=== PATIENT | female | born 1985 | race Hispanic/Latino ===

== ENCOUNTER → 2019-05-07 | Day surgery (SDC) | payer OTHER ==
[~2019-05-07] MED LIST: CALCIUM 500+D1 EACH PO; DICYCLOMINE HCL20 MG PO; FENTANYL CITRATE/PF 100MCG/2 ML INJ ONE; MAGNESIUM250 M1 PO; MIDAZOLAM HCL 2 MG/2 ML VIAL ONE; PROPOFOL IV EMULSION 10 MG/ML 50 ML VIAL ONE; VITAMIN A10000 UNIT PO; VITAMIN B-121000 MC2 PO; VITAMIN B2 PO; VITAMIN C500 MG; VITAMIN D3400 UNI1 PO
--- OUTSIDE RECORDS SUMMARY | 2019-05-07 10:31 | XMS REPORT | Clinical Summary ---
Author Author [facility] Organization [facility] Address Unknown Phone Unavailable Care Team Providers Care Media Relations Intern Name Role Phone Ruiz Meza MD PCP Allergies Comments Active Allergy Reactions Severity Noted Date Bloody stool Sulfamethoxazole-Trimetho 01/13/2019 prim Cefaclor 09/11/2018 Folic Acid Rash Low 01/13/2019 Levetiracetam 09/11/2018 Medications End Date Status Medication Sig Dispensed Refills Start Date Active AFLURIA QUAD 8926-6690, TO BE 0 PF, 60 mcg/0.5 mL syringe ADMINISTERED 8 BY PHARMACIST FOR IMMUNIZATION Active vitamin A 8000 UNIT Take 8,000 0 capsule Units by mouth daily. Active cyanocobalamin (VITAMIN Take 3,000 0 B-12) 1000 MCG tablet mcg by mouth daily. Active magnesium gluconate Take 500 mg 0 (MAGONATE) 500 mg tablet by mouth tablet daily. Active VITAMIN D2 50,000 unit Take 50,000 3 capsule Units by 9 mouth once a week. Active calcium carbonate Take by 0 (CALCIUM 500 ORAL) mouth. 01/13/2019 Discontinued cholecalciferol, vitamin Take 1 tablet 0 D3, (VITAMIN D3) 5,000 by mouth unit tablet daily. Active Problems Not on file Encounters Care Team Description Date Type Specialty Armand Cavanaugh MD Partial symptomatic epilepsy with complex partial seizures, intractable, with status epilepticus (HCC) 02/10/2019 Hospital Neurology Encounter Armand Cavanaugh MD Partial symptomatic epilepsy with complex partial seizures, intractable, with status epilepticus (HCC) (Primary Dx) 01/13/2019 Office Visit Neurology Armand Cavanaugh MD Partial symptomatic epilepsy with complex partial seizures, intractable, with status epilepticus (HCC) 09/30/2018 Hospital Neurology Encounter Bassam Tubbs RN Partial symptomatic epilepsy with complex partial seizures, intractable, with status epilepticus (HCC) (Primary Dx) 09/25/2018 Orders Only Neurology Armand Cavanaugh MD Partial symptomatic epilepsy with complex partial seizures, intractable, with status epilepticus (HCC) (Primary Dx) 09/11/2018 Office Visit Neurology after 05/06/2018 Family History Medical History Relation Name Comments No Known Problems Father Diabetes Mother Hypertension Mother Relation Name Status Comments Father Alive Mother Alive Social History Date Tobacco Use Types Packs/Day Years Used Never Smoker Smokeless Tobacco: Never Used Alcohol Use Drinks/Week oz/Week Comments No Alcohol Habits Answer Date Recorded How often do you have a drink containing alcohol? Never 09/11/2018 How many drinks containing alcohol do you have on Not asked a typical day when you are drinking? How often do you have six or more drinks on one Not asked occasion? Sex Assigned at Date Recorded Not on file Industry Job Start Date Occupation Not on file Not on file Not on file Travel End Travel History Travel Start No recent travel history available. Last Filed Vital Signs Time Taken Vital Sign Reading 01/13/2019 10:04 AM CDT Blood Pressure 120/81 01/13/2019 10:04 AM CDT Pulse 81 - Temperature - - Respiratory Rate - - Oxygen Saturation - - Inhaled Oxygen - Concentration 01/13/2019 10:04 AM CDT Weight 108 kg (239 lb) 01/13/2019 10:04 AM CDT Height 144.8 cm (4' 9") 01/13/2019 10:04 AM CDT Body Mass Index 51.72 Plan of Treatment Care Team Description Date Type Specialty Armand Cavanaugh MD [address] [facility] [address] [place] [address] 05/15/2019 Office Visit Neurology Health Maintenance Due Date Last Done Comments INFLUENZA VACCINE 05/15/2019 Procedures Comments Procedure Name Priority Date/Time Associated Diagnosis EEG AMBULATORY 12 TO 24 Routine 02/13/2019 Partial symptomatic HRS 9:49 AM CDT epilepsy with complex partial seizures, intractable, with status epilepticus (HCC) EEG EXTENDED 41 - 60 MINS Routine 09/30/2018 Partial symptomatic 2:03 PM [employer]ING [employer] epilepsy with complex partial seizures, intractable, with status epilepticus (HCC) after 05/06/2018 Results * Ambulatory EEG (Take Home) (02/13/2019 9:49 AM CDT) Narrative Performed At AMBULATORY EEG REPORT Patient Name: Holley Harris Date of : 1985 Gender: female Duration: 72 Hours Start Date: 02/10/19 Start Time: 11:17 am End Date: 02/13/19 End Time: 9:17 am Indication Seizures Findings Technique: This study was performed utilizing a ambulatory EEG recorder. A modified international 10/20 system of EEG electrode placement was used. The patient was provided a button to click during what they considered to be events. Visual Analysis of Ambulatory EEG Monitoring:The EEG was visually inspected and analyzed for characterization of the background activity in all awake and sleep states, abnormal focal and generalized features, and intraictal and ictal epileptiform activity. Electrical seizure activity was correlated with the patients study log and recorded clicks. Computer Analysis of EEG Waveforms:The EEG under went computerized digital analysis which consisted of automated detection of electrical events that could be considered epileptiform. All electrographic events identified by the detection program were visually inspected in order to assess the waveform characteristics and significance of these electrographic events. All intraictal and ictal epileptiform events are described further below with additional details of the visual analysis. Events detected by computer analysis that were not determined by visual analysis to be epileptiform were considered to be myogenic, biologic, mechanical, or electrical artifact in origin. Only computer detected events that were verified by visual inspection to be interictal or ictal epileptiform discharges are reported below and considered in the final report of this monitoring study. Awake Recording: The occipital dominant rhythm is 10 Hz. 18-22 Hz activity is present in all regions. Sleep Recording:No epileptiform activity was recorded. Hyperventilation: No abnormality elicited. Photic Stimulation: No abnormality elicited. Seizures: Several push button events were recorded but no EEG changes were present. The patient did not report any seizures in the event log. Impression The background activity is within the range of normal variation. No lateralized or epileptiform activity was recorded. 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 18-22 Hz activity is present in all regions. Sleep Recording:No epileptiform activity was recorded. Hyperventilation: No abnormality elicited. Photic Stimulation: No abnormality elicited. Impression The background activity is within the range of normal variation. No lateralized or epileptiform activity was recorded. ICD-10 Code: R569 after 05/06/2018 Insurance Type Payer Benefit Subscriber ID Effective Phone Address Plan / Dates Group PPO AETNA AETNA PPO xxxxxxxxxx [id number] OPEN resent CHOICE Advance Directives Patient has advance care planning documents on file. For more information, lenka ramos contact: Nishant Brock [address] [place] [address]
--- OUTSIDE RECORDS SUMMARY | 2019-05-07 10:32 | XMS REPORT | Summary of Care ---
Author Author [facility] Organization [facility] Address Unknown Phone Unavailable Encounter LUCIA Lam(JEANINE) [id number] Date(s): 08/19/16 - 08/19/16 [facility] [address] [place] [address]- Discharge Diagnosis: Sciatica Discharge Diagnosis: Back pain Discharge Disposition: Home or Self Care Attending Physician: Keeley Pino DO Vital Signs 1 2 3 Most recent to oldest [Reference Range]: 152.4 cm (08/19/16 3:16 AM) Height 97.9 DegF (08/19/16 5:45 AM) 98 DegF (08/19/16 3:45 AM) 98.0 DegF (08/19/16 3:16 AM) Temperature Oral [96.4-99.1 DegF] 112/85 mmHg (08/19/16 5:45 AM) 100/70 mmHg (08/19/16 4:45 AM) 98/67 mmHg (08/19/16 3:45 AM) Blood Pressure [90-140/60-90 mmHg] 19 BRMIN (08/19/16 5:45 AM) 18 BRMIN (08/19/16 4:45 AM) 18 BRMIN (08/19/16 3:45 AM) Respiratory Rate [14-20 BRMIN] 74 bpm (08/19/16 5:45 AM) 72 bpm (08/19/16 4:45 AM) 71 bpm (08/19/16 3:45 AM) Peripheral Pulse Rate [60-100 bpm] 89.091 kg (08/19/16 3:16 AM) Weight 38.36 m2 (08/19/16 3:16 AM) Body Mass Index Problem List Condition Effective Dates Status Health Status Informant Asthma(Confirmed) Resolved Allergies, Adverse Reactions, Alerts Substance Reaction Severity Status Ceclor Active penicillins Active Medications acetaminophen-hydrocodone 325 mg-10 mg oral tablet 1 tab, Route: PO, Dosing Weight 89.091, kg, ONCE, STAT, Start date: 08/19/16 3:3 8:00 CDT, Stop date: 08/19/16 3:38:00 CDT Start Date: 08/19/16 Stop Date: 08/19/16 Status: Completed Flexeril 10 mg oral tablet 10 mg, PO, TID, PRN Muscle Spasm, X 10 day, # 30 tab, 0 Refill(s) Start Date: 08/19/16 Stop Date: 08/29/16 Status: Ordered ketoprofen 75 mg oral capsule 75 mg=1 cap, PO, Q8H, PRN Pain, # 21 cap, 0 Refill(s) Start Date: 08/19/16 Stop Date: 08/26/16 Status: Ordered ketOROLAC 60 mg, Route: IM, Drug form: INJ, ONCE, Dosing Weight 89.091, kg, Priority: STAT , Start date: 08/19/16 3:38:00 CDT, Stop date: 08/19/16 3:38:00 CDT Start Date: 08/19/16 Stop Date: 08/19/16 Status: Completed Medrol Dosepak 4 mg oral tablet See Instructions, PO, Take by mouth as directed on label., X 6 day, # 1 Pack, 0 Refill(s) Start Date: 08/19/16 Stop Date: 08/25/16 Status: Ordered orphenadrine 60 mg, Route: IM, ONCE, Dosing Weight 89.091, kg, Priority: STAT, Start date: 3:39:00 CDT, Stop date: 08/19/16 3:39:00 CDT Start Date: 08/19/16 Stop Date: 08/19/16 Status: Completed predniSONE 60 mg, 3 tab, Route: PO, Drug form: TAB, ONCE, Dosing Weight 89.091, kg, Priorit y: STAT, Start date: 08/19/16 3:39:00 CDT, Stop date: 08/19/16 3:39:00 CDT Notes: Take with food. Start Date: 08/19/16 Stop Date: 08/19/16 Status: Completed Tylenol with Codeine #4 oral tablet 1 tab, PO, Q6H, PRN Pain, X 5 day, # 20 tab, 0 Refill(s) Start Date: 08/19/16 Stop Date: 08/24/16 Status: Ordered Results URINE CHEM Most recent to 1 oldest [Reference Range]: U Preg [Negative] Negative (08/19/16 4:07 AM) Immunizations No data available for this section Procedures Procedure Date Related Diagnosis Body Site Cholecystectomy Social History Social History Type Response Smoking Status Never smoker; Exposure to Tobacco Smoke None; Cigarette Smoking Last 365 Days No; Reg Smoking Cessation Counseling No Assessment and Plan No data available for this section
--- OUTSIDE RECORDS SUMMARY | 2019-05-07 10:32 | XMS REPORT | Summary of Care ---
Author Author [facility] Organization [facility] Address Unknown Phone Unavailable Encounter LUCIA Lam(JEANINE) [id number] Date(s): 07/23/17 - 07/23/17 [facility] [address] [place] [address]- Discharge Diagnosis: Strain of lumbar paraspinal muscle Discharge Disposition: Home or Self Care Attending Physician: Bernardino Dorado DO Vital Signs Most recent to 1 2 oldest [Reference Range]: Height 152.4 cm (07/23/17 5:13 PM) Temperature Oral 98.4 DegF 98.9 DegF [96.4-99.1 DegF] (07/23/17 7:28 PM) (07/23/17 5:13 PM) Blood Pressure 112/68 mmHg 162/78 mmHg [90-140/60-90 mmHg] (07/23/17 7:28 PM) *HI* (07/23/17 5:13 PM) Respiratory Rate 18 BRMIN 17 BRMIN [14-20 BRMIN] (07/23/17 7:28 PM) (07/23/17 5:13 PM) Peripheral Pulse 62 bpm 89 bpm Rate [60-100 bpm] (07/23/17 7:28 PM) (07/23/17 5:13 PM) Weight 100 kg (07/23/17 5:13 PM) Body Mass Index 43.06 m2 (07/23/17 5:13 PM) Problem List Condition Effective Dates Status Health Status Informant Asthma(Confirmed) Resolved Seizure(Confirmed) Active Allergies, Adverse Reactions, Alerts Substance Reaction Severity Status Ceclor Active Keppra1 Severe Active 1suicidal thoughts Medications Ativan 2 mg, Route: PO, Drug form: TAB, ONCE, Dosing Weight 100, kg, Priority: STAT, St art date: 07/23/17 17:20:00 CDT, Stop date: 07/23/17 17:20:00 CDT Start Date: 07/23/17 Stop Date: 07/23/17 Status: Completed dexamethasone 8 mg, Route: IM, ONCE, Dosing Weight 100, kg, Priority: STAT, Start date: 17:21:00 CDT, Stop date: 07/23/17 17:21:00 CDT Start Date: 07/23/17 Stop Date: 07/23/17 Status: Discontinued ketOROLAC 10 mg oral tablet 10 mg=1 tab, PO, Q6H, X 5 day, # 20 tab, 0 Refill(s) Start Date: 07/23/17 Stop Date: 07/28/17 Status: Ordered ketOROLAC 30 mg/mL injectable solution 60 mg, Route: IM, Drug form: INJ, ONCE, Dosing Weight 100, kg, Priority: STAT, S tart date: 07/23/17 17:21:00 CDT, Stop date: 07/23/17 17:21:00 CDT Start Date: 07/23/17 Stop Date: 07/23/17 Status: Completed tizanidine 4 mg oral tablet 4 mg=1 tab, PO, Bedtime, PRN for muscle spasm, # 45 tab, 0 Refill(s) Start Date: 07/23/17 Status: Ordered Results No data available for this section Immunizations No data available for this section Procedures Procedure Date Related Diagnosis Body Site Cholecystectomy Cyst Social History Social History Type Response Alcohol Current, Type Liquor. Frequency: 1-2 times per month. Smoking Status Never smoker; Exposure to Tobacco Smoke None; Cigarette Smoking Last 365 Days No; Reg Smoking Cessation Counseling No Assessment and Plan No data available for this section
--- OUTSIDE RECORDS SUMMARY | 2019-05-07 10:32 | XMS REPORT | Summary of Care ---
Author Author [facility] Organization [facility] Address Unknown Phone Unavailable Encounter LUCIA Lam(JEANINE) [id number] Date(s): 06/28/17 - 06/29/17 [facility] [address] [employer] provided by [facility] [place] [address]- Discharge Diagnosis: Headache Discharge Disposition: Home or Self Care Attending Physician: Maximo Parikh MD Vital Signs 1 2 3 Most recent to oldest [Reference Range]: 152.4 cm (06/28/17 10:03 PM) Height 98.4 DegF (06/29/17 4:12 AM) 98.6 DegF (06/29/17 1:34 AM) 98.5 DegF (06/28/17 10:03 PM) Temperature Oral [96.4-99.1 DegF] 114/72 mmHg (06/29/17 6:29 AM) 165/101 mmHg *HI* (06/29/17 4:12 AM) 141/88 mmHg *HI* (06/29/17 1:34 AM) Blood Pressure [90-140/60-90 mmHg] 19 BRMIN (06/29/17 6:29 AM) 16 BRMIN (06/29/17 4:12 AM) 16 BRMIN (06/29/17 1:34 AM) Respiratory Rate [14-20 BRMIN] 70 bpm (06/29/17 6:29 AM) 68 bpm (06/29/17 4:12 AM) 77 bpm (06/29/17 1:34 AM) Peripheral Pulse Rate [60-100 bpm] Problem List Condition Effective Dates Status Health Status Informant Asthma(Confirmed) Resolved Seizure(Confirmed) Active Allergies, Adverse Reactions, Alerts Substance Reaction Severity Status Ceclor Active Keppra1 Severe Active 1suicidal thoughts Medications acetaminophen 650 mg, 2 tab, Route: PO, Drug form: TAB, ONCE, Dosing Weight 95.455, kg, Priori ty: STAT, Start date: 06/29/17 4:47:00 CDT, Stop date: 06/29/17 4:47:00 CDT Notes: Do not exceed 4 gm/day. (Same as: Tylenol) Start Date: 06/29/17 Stop Date: 06/29/17 Status: Completed prochlorperazine + sodium chloride 0.9% INJ 50 mL 10 mg, 2 mL, Route: IVP, Drug form: INJ, ONCE, Dosing Weight 95.455, kg, Priorit y: STAT, Start date: 06/29/17 4:47:00 CDT, Stop date: 06/29/17 4:47:00 CDT Notes: (Same as: Compazine) Start Date: 06/29/17 Stop Date: 06/29/17 Status: Completed Sodium Chloride 0.9% (Bolus) IV 1,000 mL, 1000 ml/hr, Infuse Over: 1 hr, Route: IV, 1,000, Drug form: INJ, ONCE, Priority: STAT, Dosing Weight 95.455 kg, Start date: 06/29/17 4:47:00 CDT, Dura tion: 1 doses or times, Stop date: 06/29/17 4:47:00 CDT Start Date: 06/29/17 Stop Date: 06/29/17 Status: Completed Results ELECTROLYTES Most recent to 1 oldest [Reference Range]: Sodium Lvl [135-145 139 mEq/L mEq/L] (06/29/17 5:27 AM) Potassium Lvl 3.9 mEq/L [3.5-5.1 mEq/L] (06/29/17 5:27 AM) Chloride Lvl [95-109 104 mEq/L mEq/L] (06/29/17 5:27 AM) CO2 [24-32 mEq/L] 29 mEq/L (06/29/17 5:27 AM) AGAP [10.0-20.0 9.9 mEq/L mEq/L] *LOW* (06/29/17 5:27 AM) CHEM PANEL Most recent to 1 oldest [Reference Range]: Creatinine Lvl 0.67 mg/dL [0.50-1.40 mg/dL] (06/29/17 5:27 AM) eGFR 118 mL/min/1.73m2 1 *NA* (06/29/17 5:27 AM) BUN [7-22 mg/dL] 12 mg/dL (06/29/17 5:27 AM) Glucose Lvl [70-99 92 mg/dL mg/dL] (06/29/17 5:27 AM) Calcium Lvl 9.5 mg/dL [8.5-10.5 mg/dL] (06/29/17:27 AM) Magnesium Lvl 2.1 mg/dL [1.8-2.4 mg/dL] (06/29/17 5:27 AM) 1Result Comment: The eGFR is calculated using the CKD-EPI formula. In most young, healthy individuals the eGFR will be >90 mL/min/1.73m2. The eGFR declines with age. An eGFR of 60-89 may be normal in some populations, particularly the elderly, for whom the CKD-EPI formula has not been extensively validated. Use of the eGFR is not recommended in the following populations: Individuals with unstable creatinine concentrations, including patients and those with serious co-morbid conditions. Patients with extremes in muscle mass or diet. The data above are obtained from the National Kidney Disease Education Program ( NKDEP) which additionally recommends that when the eGFR is used in patients with extremes of body mass index for purposes of drug dosing, the eGFR should be mul tiplied by the estimated BMI. ENDOCRINOLOGY Most recent to 1 oldest [Reference Range]: hCG Tot <1 mIU/mL *NA* (06/29/17 5:27 AM) HEMATOLOGY Most recent to 1 oldest [Reference Range]: WBC [3.7-10.4 K/CMM] 8.6 K/CMM (06/29/17 5:27 AM) RBC [4.20-5.40 4.12 M/CMM M/CMM] *LOW* (06/29/17:27 AM) Hgb [12.0-16.0 g/dL] 12.9 g/dL (06/29/17 5:27 AM) Hct [36.0-48.0 %] 38.5 % (06/29/17 5:27 AM) MCV [80.0-98.0 fL] 93.4 fL (9/15/17 5:27 AM) MCH [27.0-31.0 pg] 31.3 pg *HI* (06/29/17 5:27 AM) MCHC [32.0-36.0 33.6 g/dL g/dL] (06/29/17 5:27 AM) RDW [11.5-14.5 %] 12.2 % (06/29/17 5:27 AM) Platelet [133-450 361 K/CMM K/CMM] (06/29/17 5:27 AM) MPV [7.4-10.4 fL] 7.3 fL *LOW* (06/29/17:27 AM) Segs [45.0-75.0 %] 53.4 % (06/29/17 5:27 AM) Lymphocytes 30.8 % [20.0-40.0 %] (06/29/17 5:27 AM) Monocytes [2.0-12.0 11.7 % %] (06/29/17 5:27 AM) Eosinophils [0.0-4.0 3.4 % %] (06/29/17 5:27 AM) Basophils [0.0-1.0 0.7 % %] (06/29/17 5:27 AM) Segs-Bands # 4.6 K/CMM [1.5-8.1 K/CMM] (06/29/17 5:27 AM) Lymphocytes # 2.6 K/CMM [1.0-5.5 K/CMM] (06/29/17 5:27 AM) Monocytes # [0.0-0.8 1.0 K/CMM K/CMM] *HI* (06/29/17 5:27 AM) Eosinophils # 0.3 K/CMM [0.0-0.5 K/CMM] (06/29/17 5:27 AM) Basophils # [0.0-0.2 0.1 K/CMM K/CMM] (06/29/17 5:27 AM) Immunizations No data available for this [...]
--- OUTSIDE RECORDS SUMMARY | 2019-05-07 10:32 | XMS REPORT | Summary of Care ---
Author Author [facility] Organization [facility] Address Unknown Phone Unavailable Encounter LUCIA Lam(JEANINE) [id number] Date(s): 03/13/17 - 03/14/17 [facility] [address] [place] [address]- Discharge Diagnosis: Myoclonic jerking Discharge Disposition: Home or Self Care Attending Physician: Charlotte Vega DO Vital Signs 1 2 3 Most recent to oldest [Reference Range]: 144.78 cm (03/13/17 11:23 PM) Height 98.1 DegF (03/14/17 4:57 AM) 98.4 DegF (03/13/17 11:23 PM) Temperature Oral [96.4-99.1 DegF] 120/79 mmHg (03/14/17 4:57 AM) 118/86 mmHg (03/14/17 2:15 AM) 134/90 mmHg (03/13/17 11:23 PM) Blood Pressure [90-140/60-90 mmHg] 19 BRMIN (03/14/17 4:57 AM) 20 BRMIN (03/14/17 2:15 AM) 24 BRMIN *HI* (03/14/17 12:06 AM) Respiratory Rate [14-20 BRMIN] 82 bpm (03/13/17 11:23 PM) Peripheral Pulse Rate [60-100 bpm] 95.455 kg (03/13/17 11:23 PM) Weight 45.54 m2 (03/13/17 11:23 PM) Body Mass Index Problem List Condition Effective Dates Status Health Status Informant Asthma(Confirmed) Resolved Seizure(Confirmed) Active Allergies, Adverse Reactions, Alerts Substance Reaction Severity Status Ceclor Active Keppra1 Severe Active penicillins Active 1suicidal thoughts Medications LORazepam 2 mg, Route: IVP, Drug form: INJ, ONCE, Dosing Weight 95.455, kg, Priority: STAT , Start date: 03/14/17 0:20:00 CDT, Stop date: 03/14/17 0:20:00 CDT Start Date: 03/14/17 Stop Date: 03/14/17 Status: Completed Results ELECTROLYTES Most recent to 1 oldest [Reference Range]: Sodium Lvl [135-145 141 mEq/L mEq/L] (03/14/17 12:10 AM) Potassium Lvl 3.8 mEq/L [3.5-5.1 mEq/L] (03/14/17 12:10 AM) Chloride Lvl [95-109 107 mEq/L mEq/L] (03/14/17 12:10 AM) CO2 [24-32 mEq/L] 26 mEq/L (03/14/17 12:10 AM) AGAP [10.0-20.0 11.8 mEq/L mEq/L] (03/14/17 12:10 AM) CHEM PANEL Most recent to 1 oldest [Reference Range]: Creatinine Lvl 0.83 mg/dL [0.50-1.40 mg/dL] (03/14/17 12:10 AM) eGFR 96 mL/min/1.73m2 1 *NA* (03/14/17 12:10 AM) BUN [7-22 mg/dL] 19 mg/dL (03/14/17 12:10 AM) Glucose Lvl [70-99 101 mg/dL mg/dL] *HI* (03/14/17 12:10 AM) Calcium Lvl 8.4 mg/dL [8.5-10.5 mg/dL] *LOW* (03/14/17 12:10 AM) 1Result Comment: The eGFR is calculated [...] be mul tiplied by the estimated BMI. CARDIAC ENZYMES Most recent to 1 oldest [Reference Range]: Total CK [12-191 79 unit/L unit/L] (03/14/17 1:12 AM) DRUG SCREEN Most recent to 1 oldest [Reference Range]: U Amph Scr Negative [Negative] *NA* (03/14/17 3:45 AM) U Eyl Scr Negative [Negative] *NA* (03/14/17 3:45 AM) U Benzodia Scr Positive [Negative] *ABN* (03/14/17 3:45 AM) U Cocaine Scr Negative [Negative] *NA* (03/14/17 3:45 AM) U Opiate Scr Negative [Negative] *NA* (03/14/17 3:45 AM) U Phencyc Scr Negative [Negative] *NA* (03/14/17 3:45 AM) U Cannab Scr Negative [Negative] *NA* (03/14/17 3:45 AM) UDS Note See Note (03/14/17 3:45 AM) ENDOCRINOLOGY Most recent to 1 oldest [Reference Range]: S Preg [Negative] Negative *NA* (03/14/17 12:10 AM) URINE CHEM Most recent to 1 oldest [Reference Range]: U Preg [Negative] Negative (03/14/17 3:45 AM) URINE AND STOOL Most recent to 1 oldest [Reference Range]: UA Turbidity [Clear] Clear (03/14/17 3:45 AM) UA Color [Yellow] Yellow *NA* (03/14/17 3:45 AM) UA pH [5.0-8.0] 5.0 (03/14/17 3:45 AM) UA Spec Grav 1.026 [<=1.030] (03/14/17 3:45 AM) UA Glucose [Negative Negative mg/dL mg/dL] *NA* (03/14/17 3:45 AM) UA Blood [Negative] Large *ABN* (03/14/17 3:45 AM) UA Ketones [Negative Negative mg/dL mg/dL] *NA* (03/14/17 3:45 AM) UA Protein [Negative Negative mg/dL mg/dL] (03/14/17 3:45 AM) UA Urobilinogen <=1.0 mg/dL [0.1-1.0 mg/dL] *NA* (03/14/17 3:45 AM) UA Bili [Negative] Negative *NA* (03/14/17 3:45 AM) UA Leuk Est Negative [Negative] (03/14/17 3:45 AM) UA Nitrite Negative [Negative] (03/14/17 3:45 AM) UA WBC [0-5 /HPF] 7 /HPF *HI* (03/14/17 3:45 AM) UA RBC [0-2 /HPF] 5 /HPF *HI* (03/14/17 3:45 AM) UA Bacteria [None Occasional /HPF Seen /HPF] *NA* (03/14/17 3:45 AM) UA Sq Epi [Few /LPF] Occasional /LPF *NA* (03/14/17 3:45 AM) UA Mucus [None Seen Few /LPF /LPF] *NA* (03/14/17 3:45 AM) HEMATOLOGY Most recent to 1 oldest [Reference Range]: WBC [3.7-10.4 K/CMM] 10.0 K/CMM (03/14/17 12:10 AM) RBC [4.20-5.40 3.95 M/CMM M/CMM] *LOW* (03/14/17 12:10 AM) Hgb [12.0-16.0 g/dL] 12.7 g/dL (03/14/17 12:10 AM) Hct [36.0-48.0 %] 36.4 % (03/14/17 12:10 AM) MCV [80.0-98.0 fL] 92.2 fL (03/14/17 12:10 AM) MCH [27.0-31.0 pg] 32.1 pg *HI* (03/14/17 12:10 AM) MCHC [32.0-36.0 34.9 g/dL g/dL] (03/14/17 12:10 AM) RDW [11.5-14.5 %] 12.3 % (03/14/17 12:10 AM) Platelet [133-450 325 K/CMM K/CMM] (03/14/17 12:10 AM) MPV [7.4-10.4 fL] 7.6 fL (03/14/17 12:10 AM) Segs [45.0-75.0 %] 61.3 % (03/14/17 12:10 AM) Lymphocytes 23.9 % [20.0-40.0 %] (03/14/17 12:10 AM) Monocytes [2.0-12.0 9.8 % %] (03/14/17 12:10 AM) Eosinophils [0.0-4.0 3.6 % %] (03/14/17 12:10 AM) Basophils [0.0-1.0 1.4 % %] *HI* (03/14/17 12:10 AM) Segs-Bands # 6.2 K/CMM [1.5-8.1 K/CMM] (03/14/17 12:10 AM) Lymphocytes # 2.4 K/CMM [1.0-5.5 K/CMM] (03/14/17 12:10 AM) Monocytes # [0.0-0.8 1.0 K/CMM K/CMM] *HI* (03/14/17 12:10 AM) Eosinophils # 0.4 K/CMM [0.0-0.5 K/CMM] (03/14/17 12:10 AM) Basophils # [0.0-0.2 0.1 K/CMM K/CMM] (03/14/17 12:10 AM) Immunizations No data available for this [...]
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
--- OUTSIDE RECORDS SUMMARY | 2019-05-07 10:32 | XMS REPORT | Summary of Care ---
Author Author [facility] Organization [facility] Address Unknown Phone Unavailable Encounter LUCIA Lam(JEANINE) [id number] Date(s): 10/25/16 - 10/26/16 [facility] [address] [place] [address]- [phone] Discharge Disposition: Home or Self Care Attending Physician: Buzz Euceda MD Admitting Physician: Buzz Euceda MD Vital Signs 1 2 3 Most recent to oldest [Reference Range]: 152.4 cm (10/25/16 3:47 PM) 152.4 cm (10/25/16 3:40 PM) Height 98.9 DegF (10/26/16 3:24 PM) 98.3 DegF (10/26/16 11:34 AM) 98.1 DegF (10/26/16 7:21 AM) Temperature Oral [96.4-99.1 DegF] 118/79 mmHg (10/26/16 3:24 PM) 106/65 mmHg (10/26/16 11:34 AM) 106/69 mmHg (10/26/16 7:21 AM) Blood Pressure [90-140/60-90 mmHg] 18 BRMIN (10/26/16 3:24 PM) 18 BRMIN (10/26/16 11:34 AM) 18 BRMIN (10/26/16 7:21 AM) Respiratory Rate [14-20 BRMIN] 76 bpm (10/26/16 3:24 PM) 78 bpm (10/26/16 11:34 AM) 80 bpm (10/26/16 7:21 AM) Peripheral Pulse Rate [60-100 bpm] 90.909 kg (10/25/16 3:47 PM) 90.909 kg (10/25/16 3:40 PM) 90.909 kg (10/25/16 1:16 AM) Weight 39.14 m2 (10/25/16 3:47 PM) 39.14 m2 (10/25/16 3:40 PM) Body Mass Index Problem List Condition Effective Dates Status Health Status Informant Asthma(Confirmed) Resolved Allergies, Adverse Reactions, Alerts Substance Reaction Severity Status Ceclor Active Keppra1 Severe Active penicillins Active 1suicidal thoughts Medications cloNIDine 0.1 mg oral tablet 0.1 mg, 1 tab, Route: PO, Drug form: TAB, Q6H, Dosing Weight 90.909, kg, PRN Beverlye vated BP, Start date: 10/25/16 18:38:00 FACILITIES PROJECT MANAGER, Duration: 30 day, Stop date: 18:37:00 FACILITIES PROJECT MANAGER, SBP > 165 Notes: (Same As: Catapres) Start Date: 10/25/16 Stop Date: 10/26/16 Status: Discontinued dexamethasone 8 mg, 2 mL, Route: IVP, Drug form: INJ, ONCE, Dosing Weight 90.909, kg, Priority : STAT, Start date: 10/25/16 6:41:00 FACILITIES PROJECT MANAGER, Stop date: 10/25/16 6:41:00 FACILITIES PROJECT MANAGER Start Date: 10/25/16 Stop Date: 10/25/16 Status: Completed diazepam 10 mg, Route: PO, ONCE, Dosing Weight 90.909, kg, Priority: STAT, Start date: 10:27:00 FACILITIES PROJECT MANAGER, Stop date: 10/25/16 10:27:00 FACILITIES PROJECT MANAGER Start Date: 10/25/16 Stop Date: 10/25/16 Status: Completed diazepam 5 mg, 1 mL, Route: IVP, Drug form: INJ, ONCE, Dosing Weight 90.909, kg, Priority : STAT, Start date: 10/25/16 6:42:00 FACILITIES PROJECT MANAGER, Stop date: 10/25/16 6:42:00 FACILITIES PROJECT MANAGER Notes: (Same as: Valium)WASTE: F/P - Black; E - White/Blue Start Date: 10/25/16 Stop Date: 10/25/16 Status: Completed ketOROLAC 30 mg, 1 mL, Route: IVP, Drug form: INJ, ONCE, Dosing Weight 90.909, kg, Priorit y: STAT, Start date: 10/25/16 6:41:00 FACILITIES PROJECT MANAGER, Stop date: 10/25/16 6:41:00 FACILITIES PROJECT MANAGER Notes: (Same as:Toradol) IV bolus must be given >15 seconds. Give IM administration slowly and deeply into the muscle.Not for use > 4 days MEDICATION WASTE Product Size: 30 mgProduct Wasted: ___ mg Start Date: 10/25/16 Stop Date: 10/25/16 Status: Completed LORazepam 1 mg, 0.5 mL, Route: IVP, Drug form: INJ, Q15Min, Dosing Weight 90.909, kg, PRN Seizure, Start date: 10/25/16 15:39:00 FACILITIES PROJECT MANAGER, Duration: 30 day, Stop date: 7 15:38:00 FACILITIES PROJECT MANAGER Notes: (Same as: Ativan) Start Date: 10/25/16 Stop Date: 10/26/16 Status: Discontinued Lovenox 40 mg, 0.4 mL, Route: SUB-Q, Drug form: INJ, [id number], Dosing Weight 90.909, kg, Start date: 10/25/16 19:00:00 FACILITIES PROJECT MANAGER, Duration: 30 day, Stop date: 11/23/16 19:00: 00 FACILITIES PROJECT MANAGER Notes: (Same as: Lovenox) Start Date: 10/25/16 Stop Date: 10/26/16 Status: Discontinued magnesium gluconate 500 mg oral tablet 500 mg=1 tab, PO, Daily, # 20 tab, 0 Refill(s) Start Date: 10/25/16 Stop Date: 11/04/16 Status: Ordered MiraLax 17 gm, 1 pkt, Route: PO, Drug form: PWDR, Daily, Dosing Weight 90.909, kg, PRN C onstipation, Start date: 10/25/16 18:38:00 FACILITIES PROJECT MANAGER, Duration: 30 day, Stop date: 07/31 18:37:00 FACILITIES PROJECT MANAGER Notes: Dissolve in 8 oz of water or juice.(Same as: Miralax) Start Date: 10/25/16 Stop Date: 10/26/16 Status: Discontinued Willard 5/325 oral tablet 1 tab, Route: PO, Drug Form: TAB, Dosing Weight 90.909, kg, Q4H, PRN Other -See Comment, Start date: 10/25/16 18:39:00 FACILITIES PROJECT MANAGER, Duration: 30 day, Stop date: 7 18:38:00 FACILITIES PROJECT MANAGER Notes: (Same as: Willard 325/5) Do not exceed 4gm/day of acetaminophen. Start Date: 10/25/16 Stop Date: 10/26/16 Status: Discontinued orphenadrine 60 mg, Route: IVP, ONCE, Dosing Weight 90.909, kg, Priority: STAT, Start date: 0 10/25/16 8:12:00 FACILITIES PROJECT MANAGER, Stop date: 10/25/16 8:12:00 FACILITIES PROJECT MANAGER Start Date: 10/25/16 Stop Date: 10/25/16 Status: Discontinued Restoril 15 mg, 1 cap, Route: PO, Drug form: CAP, Bedtime, Dosing Weight 90.909, kg, PRN Sleep, Start date: 10/25/16 18:39:00 FACILITIES PROJECT MANAGER, Duration: 30 day, Stop date: 11/24/16 18:38:00 FACILITIES PROJECT MANAGER Notes: (Same As: Restoril) Start Date: 10/25/16 Stop Date: 10/26/16 Status: Discontinued Robaxin 1,000 mg, 2 tab, Route: PO, Drug form: TAB, ONCE, Dosing Weight 90.909, kg, Star t date: 10/25/16 8:46:00 FACILITIES PROJECT MANAGER, Stop date: 10/25/16 8:46:00 FACILITIES PROJECT MANAGER Notes: (Same as:Robaxin)send to 2D Start Date: 10/25/16 Stop Date: 10/25/16 Status: Completed Sodium Chloride 0.9% (Bolus) IV 1,000 mL, 1000 ml/hr, Infuse Over: 1 hr, Route: IV, 1,000, Drug form: INJ, ONCE, Priority: STAT, Dosing Weight 90.909 kg, Start date: 10/25/16 6:40:00 FACILITIES PROJECT MANAGER, Dura tion: 1 doses or times, Stop date: 10/25/16 6:40:00 FACILITIES PROJECT MANAGER Start Date: 10/25/16 Stop Date: 10/25/16 Status: Completed tizanidine 4 mg, 1 tab, Route: PO, Drug form: TAB, Q8H, Dosing Weight 90.909, kg, Start bradford e: 10/25/16 16:00:00 FACILITIES PROJECT MANAGER, Duration: 30 day, Stop date: 11/24/16 8:00:00 FACILITIES PROJECT MANAGER Notes: (Same As: Zanaflex) Start Date: 10/25/16 Stop Date: 10/26/16 Status: Discontinued tizanidine 4 mg oral tablet 4 mg=1 tab, PO, Q8H, PRN as needed for muscle spasm, # 30 tab, 0 Refill(s) Start Date: 10/26/16 Status: Ordered Tylenol 650 mg, 20.3 mL, Route: PO, Drug form: LIQ, Q6H, Dosing Weight 90.909, kg, PRN O ther -See Comment, Start date: 10/25/16 18:39:00 FACILITIES PROJECT MANAGER, Duration: 30 day, Stop bradford e: 11/24/16 18:38:00 FACILITIES PROJECT MANAGER, fever, pain, headache Notes: Max odqvcuhjuisne=9724ml/day (4 gm/day). (Same as: Tylenol) Start Date: 10/25/16 Stop Date: 10/26/16 Status: Discontinued Zofran 4 mg, 2 mL, Route: IVP, Drug form: INJ, Q4H, Dosing Weight 90.909, kg, PRN Nause a, Start date: 10/25/16 18:39:00 FACILITIES PROJECT MANAGER, Duration: 30 day, Stop date: 11/24/16 18:3 8:00 FACILITIES PROJECT MANAGER Notes: (Same as: Zofran) MEDICATION WASTE Product Size: 4 mgProduct Was luis: ___ mg Start Date: 10/25/16 Stop Date: 10/26/16 Status: Discontinued Results ELECTROLYTES Most recent to 1 2 oldest [Reference Range]: Sodium Lvl [135-145 140 mEq/L 139 mEq/L mEq/L] (10/26/16 4:30 AM) (10/25/16 7:07 AM) Potassium Lvl 3.9 mEq/L 3.4 mEq/L [3.5-5.1 mEq/L] (10/26/16 4:30 AM) *LOW* (10/25/16 7:07 AM) Chloride Lvl [95-109 110 mEq/L 104 mEq/L mEq/L] *HI* (10/25/16 7:07 AM) (10/26/16 4:30 AM) CO2 [24-32 mEq/L] 19 mEq/L 26 mEq/L *LOW* (10/25/16 7:07 AM) (10/26/16 4:30 AM) AGAP [10.0-20.0 14.9 mEq/L 12.4 mEq/L mEq/L] (10/26/16 4:30 AM) (10/25/16 7:07 AM) CHEM PANEL Most recent to 1 2 oldest [Reference Range]: Creatinine Lvl 0.52 mg/dL 0.76 mg/dL [0.50-1.40 mg/dL] (10/26/16 4:30 AM) (10/25/16 7:07 AM) eGFR 130 mL/min/1.73m2 1 106 mL/min/1.73m2 2 *NA* *NA* (10/26/16 4:30 AM) (10/25/16 7:07 AM) BUN [7-22 mg/dL] 18 mg/dL 20 mg/dL (10/26/16 4:30 AM) (10/25/16 7:07 AM) B/C Ratio [6-25] 26 *HI* (10/25/16 7:07 AM) Glucose Lvl [70-99 95 mg/dL 84 mg/dL mg/dL] (10/26/16 4:30 AM) (10/25/16 7:07 AM) Total Protein 7.8 g/dL [6.4-8.4 g/dL] (10/25/16 7:07 AM) Albumin Lvl [3.5-5.0 3.6 g/dL g/dL] (10/25/16 7:07 AM) Globulin [2.7-4.2 4.2 g/dL g/dL] (10/25/16 7:07 AM) A/G Ratio [0.7-1.6] 0.9 (10/25/16 7:07 AM) Calcium Lvl 8.3 mg/dL 8.4 mg/dL [8.5-10.5 mg/dL] *LOW* *LOW* (10/26/16 4:30 AM) (10/25/16 7:07 AM) Magnesium Lvl 2.3 mg/dL 2.5 mg/dL [1.8-2.4 mg/dL] (10/26/16 4:30 AM) *HI* (10/25/16 10:53 AM) ALT [0-65 unit/L] 14 unit/L (10/25/16 7:07 AM) AST [0-37 unit/L] 16 unit/L (10/25/16 7:07 AM) Alk Phos [39-136 61 unit/L unit/L] (10/25/16 7:07 AM) Bili Total [0.2-1.3 0.6 mg/dL mg/dL] (10/25/16 7:07 AM) 1Result Comment: The eGFR is calculated [...] be mul tiplied by the estimated BMI. 2Result Comment: The eGFR is calculated using the [...] BMI. CARDIAC ENZYMES Most recent to 1 2 oldest [Reference Range]: Total CK [12-191 168 unit/L unit/L] (10/25/16 7:07 AM) LIPIDS Most recent to 1 2 oldest [Reference Range]: CHD Risk [3.90-5.80] 3.45 *LOW* (10/26/16 4:30 AM) Chol [<=199 mg/dL] 176 mg/dL (10/26/16 4:30 AM) Trig [<=149 mg/dL] 73 mg/dL (10/26/16 4:30 AM) HDL [>=61 mg/dL] 51 mg/dL *LOW* (10/26/16 4:30 AM) LDL (Calculated) 110 mg/dL [<=99 mg/dL] *HI* (10/26/16 4:30 AM) VLDL 15 *NA* (10/26/16 4:30 AM) SPECIAL CHEMISTRY Most recent to 1 2 oldest [Reference Range]: Hgb A1C [<=5.6 %] 4.7 % (10/26/16 4:30 AM) ENDOCRINOLOGY Most recent to 1 2 oldest [Reference Range]: S Preg [Negative] Negative *NA* (10/25/16 7:07 AM) HEMATOLOGY Most recent to 1 2 oldest [Reference Range]: WBC [3.7-10.4 K/CMM] 12.0 K/CMM 9.8 K/CMM *HI* (10/25/16 7:07 AM) (10/26/16 4:30 AM) RBC [4.20-5.40 3.58 M/CMM 3.99 M/CMM M/CMM] *LOW* *LOW* (10/26/16 4:30 AM) (10/25/16 7:07 AM) Hgb [12.0-16.0 g/dL] 11.7 g/dL 13.1 g/dL *LOW* (10/25/16 7:07 AM) (10/26/16 4:30 AM) Hct [36.0-48.0 %] 34.4 % 37.9 % *LOW* (10/25/16 7:07 AM) (10/26/16 4:30 AM) MCV [80.0-98.0 fL] 95.9 fL 95.1 fL (10/26/16 4:30 AM) (10/25/16 7:07 AM) MCH [27.0-31.0 pg] 32.5 pg 32.9 pg *HI* *HI* (10/26/16 4:30 AM) (10/25/16 7:07 AM) MCHC [32.0-36.0 33.9 g/dL 34.6 g/dL g/dL] (10/26/16 4:30 AM) (10/25/16 7:07 AM) RDW [11.5-14.5 %] 12.4 % 12.4 % (10/26/16 4:30 AM) (10/25/16 7:07 AM) Platelet [133-450 333 K/CMM 382 K/CMM K/CMM] (10/26/16 4:30 AM) (10/25/16 7:07 AM) MPV [7.4-10.4 fL] 7.6 fL 7.5 fL (10/26/16 4:30 AM) (10/25/16 7:07 AM) Segs [45.0-75.0 %] 68.6 % 66.6 % (10/26/16 4:30 AM) (10/25/16 7:07 AM) Lymphocytes 20.4 % 20.9 % [20.0-40.0 %] (10/26/16 4:30 AM) (10/25/16 7:07 AM) Monocytes [2.0-12.0 10.1 % 10.7 % %] (10/26/16 4:30 AM) (10/25/16 7:07 AM) Eosinophils [0.0-4.0 0.5 % 1.1 % %] (10/26/16 4:30 AM) (10/25/16 7:07 AM) Basophils [0.0-1.0 0.4 % 0.7 % %] (10/26/16 4:30 AM) (10/25/16 7:07 AM) Segs-Bands # 8.2 K/CMM 6.5 K/CMM [1.5-8.1 K/CMM] *HI* (10/25/16 7:07 AM) (10/26/16 4:30 AM) Lymphocytes # 2.4 K/CMM 2.0 K/CMM [1.0-5.5 K/CMM] (10/26/16 4:30 AM) (10/25/16 7:07 AM) Monocytes # [0.0-0.8 1.2 K/CMM 1.0 K/CMM K/CMM] *HI* *HI* (10/26/16 4:30 AM) (10/25/16 7:07 AM) Eosinophils # 0.1 K/CMM 0.1 K/CMM [0.0-0.5 K/CMM] (10/26/16 4:30 AM) (10/25/16 7:07 AM) Basophils # [0.0-0.2 0.1 K/CMM 0.1 K/CMM K/CMM] (10/26/16 4:30 AM) (10/25/16 7:07 AM) Immunizations No data available for this section Procedures Procedure Date Related Diagnosis Body Site Cholecystectomy Social History Social History Type Response Alcohol Current, Type Liquor. Frequency: 1-2 times per month. Smoking Status Never smoker; Exposure to Tobacco Smoke None; Cigarette Smoking Last 365 Days No; Reg Smoking Cessation Counseling No Assessment and Plan Extracted from: Title: Clinical Document Author: Buzz Euceda MD Date: 10/26/16 IPC Daily Progress Note [facility] Buzz Euceda MD SUBJECTIVE: Pt seen and exam'd. Events noted. Following up abnl movements. OBJECTIVE: Vitals and Temp: VitalsTmp(F)[id number] 10/26 11:[id number]--- 10/26 07:2198.339583/[id number]--- 10/26 04:2698.667353/215928--- 10/25 23:4398.723765/[id number]--- 10/25 19:5998.455909/[id number]--- 24 Hr Tmax: 98.8F (37.11c) at 10/25 15:31Vital Signs are the last 5 in the past 48 hours. Input/Output RecordInOutBal 1224hr Tot 0 0 0 1124hr Tot 1002 0 1002 Labs (Last four charted values) WBC H 12.0(OCT 26)9.8(OCT 25) Hgb L 11.7(OCT 26)13.1(OCT 25) Hct L 34.4(OCT 26)37.9(OCT 25) Plt 333(OCT 26)382(OCT 25) Na 140(OCT 26)139(OCT 25) K 3.9(OCT 26)L 3.4(OCT 25) CO2 L 19(OCT 26)26(OCT 25) Cl H 110(OCT 26)104(OCT 25) Cr 0.52(OCT 26)0.76(OCT 25) BUN 18(OCT 26)20(OCT 25) Glucose Random 95(OCT 26)84(OCT 25) Mg 2.3(OCT 26)H 2.5(OCT 25) Ca L 8.3(OCT 26)L 8.4(OCT 25) Total CK 168(OCT 25) Medications Scheduled Meds (2):enoxaparin (Lovenox), tizanidine Unscheduled Meds: None PRN Meds (7):LORazepam, acetaminophen-hydrocodone (Willard 5/325 oral tablet), acetaminophen (Tylenol), cloNIDine (cloNIDine 0.1 mg oral tablet), ondansetron (Zofran), polyethylene glycol 3350 (MiraLax), temazepam (Restoril) One Time Meds (7):(Completed) Sodium Chloride 0.9% IV (Sodium Chloride 0.9% (Bolus) IV), (Completed) dexamethasone, (Completed) diazepam, (Completed) diazepam, (Completed) ketOROLAC, (Completed) methocarbamol (Robaxin), (Discontinued) orphenadrine Continuous Infusions: None EXAM: Gen: Awake, alert, oriented X3, in NAD HEENT: PERRL, EOMI, NC/AT, MMM Neck: Supple without bruit or jvd. GERALDINE Lungs: CTAB Heart: S1/S2, RRR Abd: Positive bowel sounds, nt/nd Ext: No CCE Skin: warm/ dry/ intact Neuropsych: mentation appropriate. ASSESSMENT & PLAN: 1. Abnormal movements, mostly to RLE. 2. Chiari 1 malformation; without acute issue. Appreciate Neuro input. Unlikely true seizures. Request Psych eval. Zanaflex as needed. D/w pt and family. Likely home later today.
--- OUTSIDE RECORDS SUMMARY | 2019-05-07 10:32 | XMS REPORT | Summary of Care ---
Author Author [facility] Organization [facility] Address Unknown Phone Unavailable Encounter LUCIA Lam(JEANINE) [id number] Date(s): 08/22/16 - 08/23/16 [facility] [address] [place] [address]- Discharge Diagnosis: Acute low back pain Discharge Disposition: Home or Self Care Attending Physician: Darryn Benites MD Vital Signs 1 2 3 Most recent to oldest [Reference Range]: 152.4 cm (08/22/16 6:13 PM) Height 98.4 DegF (08/23/16 1:16 AM) 98.4 DegF (08/22/16 10:00 PM) 98.2 DegF (08/22/16 6:13 PM) Temperature Oral [96.4-99.1 DegF] 120/82 mmHg (08/23/16 1:16 AM) 117/81 mmHg (08/22/16 10:00 PM) 99/54 mmHg (08/22/16 6:13 PM) Blood Pressure [90-140/60-90 mmHg] 18 BRMIN (08/23/16 1:16 AM) 18 BRMIN (08/22/16 10:00 PM) 18 BRMIN (08/22/16 6:13 PM) Respiratory Rate [14-20 BRMIN] 82 bpm (08/23/16 1:16 AM) 87 bpm (08/22/16 10:00 PM) 94 bpm (08/22/16 6:13 PM) Peripheral Pulse Rate [60-100 bpm] 90.455 kg (08/22/16 6:13 PM) Weight 38.95 m2 (08/22/16 6:13 PM) Body Mass Index Problem List Condition Effective Dates Status Health Status Informant Asthma(Confirmed) Resolved Allergies, Adverse Reactions, Alerts Substance Reaction Severity Status Ceclor Active penicillins Active Medications ibuprofen 800 mg oral tablet 800 mg=1 tab, PO, Q8H, X 10 day, # 30 tab, 0 Refill(s) Start Date: 08/23/16 Stop Date: 09/02/16 Status: Ordered ketOROLAC 30 mg, Route: IVP, Drug form: INJ, ONCE, Dosing Weight 90.455, kg, Priority: STA T, Start date: 08/23/16 0:51:00 COMMUTATOR TESTER, Stop date: 08/23/16 0:51:00 COMMUTATOR TESTER Start Date: 08/23/16 Stop Date: 08/23/16 Status: Completed morphine Sulfate 4 mg, Route: IVP, ONCE, Dosing Weight 90.455, kg, Priority: STAT, Start date: 23:18:00 COMMUTATOR TESTER, Stop date: 08/22/16 23:18:00 COMMUTATOR TESTER Start Date: 08/22/16 Stop Date: 08/22/16 Status: Completed morphine Sulfate 4 mg, Route: IVP, ONCE, Dosing Weight 90.455, kg, Priority: STAT, Start date: 21:41:00 COMMUTATOR TESTER, Stop date: 08/22/16 21:41:00 COMMUTATOR TESTER Start Date: 08/22/16 Stop Date: 08/22/16 Status: Completed Robaxin-750 oral tablet 750 mg=1 tab, PO, TID, PRN as needed for pain, X 10 day, # 30 tab, 0 Refill(s) Start Date: 08/23/16 Stop Date: 09/02/16 Status: Ordered Sodium Chloride 0.9% (Bolus) IV 1,000 mL, 2,000 ml/hr, Infuse Over: 30 minutes, Route: IV, ONCE, Priority: STAT, Dosing Weight 90.455 kg, Start date: 08/22/16 21:43:00 COMMUTATOR TESTER, Duration: 1 doses or times, Stop date: 08/22/16 21:43:00 COMMUTATOR TESTER Start Date: 08/22/16 Stop Date: 08/22/16 Status: Completed tramadol 50 mg oral tablet 50 mg=1 tab, PO, BID, X 15 day, # 30 tab, 0 Refill(s) Start Date: 08/23/16 Stop Date: 09/07/16 Status: Ordered Valium 5 mg, Route: IVP, Drug form: INJ, ONCE, Dosing Weight 90.455, kg, Priority: STAT , Start date: 08/22/16 21:43:00 COMMUTATOR TESTER, Stop date: 08/22/16 21:43:00 COMMUTATOR TESTER Start Date: 08/22/16 Stop Date: 08/22/16 Status: Completed Zofran 4 mg, Route: IVP, Drug form: INJ, ONCE, Dosing Weight 90.455, kg, Priority: STAT , Start date: 08/22/16 21:41:00 COMMUTATOR TESTER, Stop date: 08/22/16 21:41:00 COMMUTATOR TESTER Start Date: 08/22/16 Stop Date: 08/22/16 Status: Completed Results ELECTROLYTES Most recent to 1 oldest [Reference Range]: Sodium Lvl [135-145 138 mEq/L mEq/L] (08/22/16 9:58 PM) Potassium Lvl 4.3 mEq/L [3.5-5.1 mEq/L] (08/22/16 9:58 PM) Chloride Lvl [95-109 109 mEq/L mEq/L] (08/22/16 9:58 PM) CO2 [24-32 mEq/L] 20 mEq/L *LOW* (08/22/16 9:58 PM) AGAP [10.0-20.0 13.3 mEq/L mEq/L] (08/22/16 9:58 PM) CHEM PANEL Most recent to 1 oldest [Reference Range]: Creatinine Lvl 0.67 mg/dL [0.50-1.40 mg/dL] (08/22/16 9:58 PM) eGFR 119 mL/min/1.73m2 1 *NA* (08/22/16 9:58 PM) BUN [7-22 mg/dL] 18 mg/dL (08/22/16 9:58 PM) B/C Ratio [6-25] 27 *HI* (08/22/16 9:58 PM) Glucose Lvl [70-99 123 mg/dL mg/dL] *HI* (08/22/16 9:58 PM) Total Protein 7.6 g/dL [6.4-8.4 g/dL] (08/22/16 9:58 PM) Albumin Lvl [3.5-5.0 3.4 g/dL g/dL] *LOW* (08/22/16 9:58 PM) Globulin [2.7-4.2 4.2 g/dL g/dL] (08/22/16 9:58 PM) A/G Ratio [0.7-1.6] 0.8 (08/22/16 9:58 PM) Calcium Lvl 8.3 mg/dL [8.5-10.5 mg/dL] *LOW* (08/22/16 9:58 PM) ALT [0-65 unit/L] 17 unit/L (08/22/16 9:58 PM) AST [0-37 unit/L] 15 unit/L (08/22/16 9:58 PM) Alk Phos [39-136 80 unit/L unit/L] (08/22/16 9:58 PM) Bili Total [0.2-1.3 0.3 mg/dL mg/dL] (08/22/16 9:58 PM) 1Result Comment: The eGFR is calculated using [...] be mul tiplied by the estimated BMI. URINE CHEM Most recent to 1 oldest [Reference Range]: U Preg [Negative] Negative (08/22/16 9:58 PM) URINE AND STOOL Most recent to 1 oldest [Reference Range]: UA Turbidity [Clear] Clear (08/22/16 9:58 PM) UA Color Ltyellow *NA* (08/22/16 9:58 PM) UA pH [5.0-8.0] 6.0 (08/22/16 9:58 PM) UA Spec Grav 1.024 [<=1.030] (08/22/16 9:58 PM) UA Glucose [Negative Negative mg/dL mg/dL] *NA* (08/22/16 9:58 PM) UA Blood [Negative] Negative (08/22/16 9:58 PM) UA Ketones [Negative Negative mg/dL mg/dL] *NA* (08/22/16 9:58 PM) UA Protein [Negative Negative mg/dL mg/dL] (08/22/16 9:58 PM) UA Urobilinogen <=1.0 mg/dL [0.1-1.0 mg/dL] *NA* (08/22/16 9:58 PM) UA Bili [Negative] Negative *NA* (08/22/16 9:58 PM) UA Leuk Est Moderate [Negative] *ABN* (08/22/16 9:58 PM) UA Nitrite Negative [Negative] (08/22/16 9:58 PM) UA WBC [0-5 /HPF] 4 /HPF (08/22/16 9:58 PM) UA Bacteria [None Few /HPF Seen /HPF] *NA* (08/22/16 9:58 PM) UA Sq Epi [Few /LPF] Moderate /LPF *ABN* (08/22/16 9:58 PM) UA Mucus [None Seen Few /LPF /LPF] *NA* (08/22/16 9:58 PM) HEMATOLOGY Most recent to 1 oldest [Reference Range]: WBC [3.7-10.4 K/CMM] 12.6 K/CMM *HI* (08/22/16 9:58 PM) RBC [4.20-5.40 4.29 M/CMM M/CMM] (08/22/16 9:58 PM) Hgb [12.0-16.0 g/dL] 13.6 g/dL (08/22/16 9:58 PM) Hct [36.0-48.0 %] 39.8 % (08/22/16 9:58 PM) MCV [80.0-98.0 fL] 93.0 fL (08/22/16 9:58 PM) MCH [27.0-31.0 pg] 31.7 pg *HI* (08/22/16 9:58 PM) MCHC [32.0-36.0 34.1 g/dL g/dL] (08/22/16 9:58 PM) RDW [11.5-14.5 %] 12.5 % (08/22/16 9:58 PM) Platelet [133-450 335 K/CMM K/CMM] (08/22/16 9:58 PM) MPV [7.4-10.4 fL] 7.9 fL (08/22/16 9:58 PM) Segs [45.0-75.0 %] 80.1 % *HI* (08/22/16 9:58 PM) Lymphocytes 13.9 % [20.0-40.0 %] *LOW* (08/22/16 9:58 PM) Monocytes [2.0-12.0 4.8 % %] (08/22/16 9:58 PM) Eosinophils [0.0-4.0 0.2 % %] (08/22/16 9:58 PM) Basophils [0.0-1.0 1.0 % %] (08/22/16 9:58 PM) Segs-Bands # 10.1 K/CMM [1.5-8.1 K/CMM] *HI* (08/22/16 9:58 PM) Lymphocytes # 1.8 K/CMM [1.0-5.5 K/CMM] (08/22/16 9:58 PM) Monocytes # [0.0-0.8 0.6 K/CMM K/CMM] (08/22/16 9:58 PM) Basophils # [0.0-0.2 0.1 K/CMM K/CMM] (08/22/16 9:58 PM) Immunizations No data available for this section Procedures Procedure Date Related Diagnosis Body Site Cholecystectomy Social History Social History Type Response Smoking Status Never smoker; Exposure to Tobacco Smoke None; Cigarette Smoking Last 365 Days No; Reg Smoking Cessation Counseling No Assessment and Plan No data available for this section
--- OUTSIDE RECORDS SUMMARY | 2019-05-07 10:32 | XMS REPORT | Continuity of Care Document ---
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 ([place] 5/325 oral tablet), acetaminophen (Tylenol), cloNIDine (cloNIDine [...] warm/ dry/ intact Neuropsych: mentation appropriate. ASSESSMENT and PLAN: 1. Abnormal movements, mostly to RLE. 2. Chiari 1 malformation; without acute issue. Appreciate Neuro input. Unlikely true seizures. Request Psych eval. Zanaflex as needed. D/w pt and family. Likely home later today. 10/27/2016 [facility] Plan of Care No Data Provided for This Section Social History Social History Date Source Social History TypeResponse Alcohol Current, Type Liquor. Frequency: 1-2 times per month. Smoking Status Never smoker; Exposure to Tobacco Smoke None; Cigarette Smoking Last 365 Days No; Reg Smoking Cessation Counseling No entered on: 09/14/18 10/25/2016 [facility] Social History TypeResponse Alcohol Current, Type Liquor. Frequency: 1-2 times per month. Smoking Status Never smoker; Exposure to Tobacco Smoke None; Cigarette Smoking Last 365 Days No; Reg Smoking Cessation Counseling No 10/25/2016 [facility] Family History No Data Provided for This Section Advance Directives No Data Provided for This Section Functional Status No Data Provided for This Section
--- OUTSIDE RECORDS SUMMARY | 2019-05-07 10:32 | XMS REPORT | Summary of Care ---
Author Author [facility] Organization [facility] Address Unknown Phone Unavailable Encounter LUCIA Lam(JEANINE) [id number] Date(s): 07/12/16 - 07/12/16 [facility] [id number] [place] [address]- [phone] Discharge Diagnosis: Contusion of chest wall Discharge Disposition: Home or Self Care Attending Physician: Shira Esquivel MD Vital Signs Most recent to 1 2 oldest [Reference Range]: Height 149.86 cm (07/12/16 2:48 PM) Temperature Oral 98.0 DegF [96.4-99.1 DegF] (07/12/16 2:48 PM) Blood Pressure 114/77 mmHg 128/91 mmHg [90-140/60-90 mmHg] (07/12/16 4:55 PM) (07/12/16 2:48 PM) Respiratory Rate 18 BRMIN 18 BRMIN [14-20 BRMIN] (07/12/16 4:55 PM) (07/12/16 2:48 PM) Peripheral Pulse 69 bpm 80 bpm Rate [60-100 bpm] (07/12/16 4:55 PM) (07/12/16 2:48 PM) Weight 89.091 kg (07/12/16 2:48 PM) Body Mass Index 39.67 m2 (07/12/16 2:48 PM) Problem List Condition Effective Dates Status Health Status Informant Asthma(Confirmed) Resolved Allergies, Adverse Reactions, Alerts Substance Reaction Severity Status Ceclor Active penicillins Active Medications Motrin 800 mg oral tablet 800 mg=1 tab, PO, Q8H, PRN Pain, Take with food, X 10 day, # 30 tab, 0 Refill(s) Start Date: 07/12/16 Stop Date: 07/22/16 Status: Ordered Results No data available for [...]
[2019-05-07 12:40] VITALS: BP 117/88
== END | disposition home or self-care (01) ==
LOC: OR 10:28
PROVIDERS: ATTEND Internal Medicine Gastroenterology
DX: K29.70 Gastritis, unspecified, without bleeding (principal); K62.1 Rectal polyp; K20.9 Esophagitis, unspecified; K44.9 Diaphragmatic hernia without obstruction or gangrene; K21.9 Gastro-esophageal reflux disease without esophagitis; K64.8 Other hemorrhoids; Z71.3 Dietary counseling and surveillance; E66.01 Morbid (severe) obesity due to excess calories; J45.909 Unspecified asthma, uncomplicated; Z88.1 Allergy status to other antibiotic agents; Z68.43 Body mass index [BMI] 50.0-59.9, adult; Z87.891 Personal history of nicotine dependence
CPT/HCPCS: 43239; 45380; 81025; J2250; J2704; J3010; 45378